=== PATIENT | male | born 1980 | race American Indian/Alaskan Native ===

== ENCOUNTER 2018-06-01 12:10 | Outpatient (CLI) | payer BC ==
[2018-06-01 13:41] LABS: Bilirubin,Urine NEG (Negative); Blood,Urine NEG (Negative); Color,Urine Yellow (Yellow); Mucus,Urine FEW /HPF; Protein,Urine <15 mg/dL mg/dL (Negative)
== END 2018-06-01 12:11 | disposition home or self-care (01) ==
LOC: LAB 12:10
PROVIDERS: ATTEND Internal Medicine
DX: N39.0 Urinary tract infection, site not specified (principal)
CPT/HCPCS: 81001; 87086

== ENCOUNTER 2019-05-23 12:00 | Outpatient (CLI) | payer BC ==
--- NOTE | 2019-05-23 13:55 | XRay Report ---
CHEST 2 VIEWS INDICATION: [id number].[id number]. COMPARISON: None FINDINGS: Support devices: None. Heart: Within normal limits. Lungs/pleura: No acute air space or interstitial disease. No pneumothorax. Additional findings: None. IMPRESSION: Normal chest x-ray. Signer Name: Olman Noland Jr, MD Signed: 05/23/2019 1:50 PM Workstation Name: [id number]
== END 2019-05-23 12:01 | disposition home or self-care (01) ==
LOC: XRAY 12:00
PROVIDERS: ATTEND Internal Medicine
DX: R05 Cough (principal)
CPT/HCPCS: 71046

== ENCOUNTER 2019-06-05 12:51 | Outpatient (CLI) | payer BC ==
[2019-06-05 13:13] LABS: Basophils % (Auto) 1.1 % (0.0-1.8); Eosinophils # (Auto) 0.1 K/mm3 (0.0-0.4); Eosinophils % (Auto) 1.8 % (0.0-4.3); Hematocrit 40.3 % (35.5-45.6); Hemoglobin 13.2 gm/dl (11.8-15.2); Lymphocytes % (Auto) 27.2 % (13.4-35.0); Mean Corpuscular HGB Conc 33 % (32-34); Mean Corpuscular Volume 82 fl (84-94); Monocytes # (Auto) 0.3 K/mm3 (0.0-0.8); Monocytes % (Auto) 8.9 % (0.0-7.3); Platelet Count 486 K/mm3 (140-440); Red Blood Count 4.91 M/mm3 (3.65-5.03); Red Cell Distribution Width 12.9 % (13.2-15.2)
[2019-06-05 13:28] LABS: Alanine Aminotransferase 15 units/L (7-56); Albumin 4.2 g/dL (3.9-5); BUN/Creatinine Ratio 11; Blood Urea Nitrogen 8 mg/dL (9-20); Calcium 9.1 mg/dL (8.4-10.2); HDL Cholesterol 42 mg/dL (40-59); Hemolysis Index 2; LDL Cholesterol,Direct 80 mg/dL (50-130)
[2019-06-08 13:40] LABS: Vitamin D, 25-OH, D2 <4 ng/mL
== END 2019-06-05 12:52 | disposition home or self-care (01) ==
LOC: LAB 12:51
PROVIDERS: ATTEND Internal Medicine
DX: Z00.00 Encounter for general adult medical examination without abnormal findings (principal); Z13.21 Encounter for screening for nutritional disorder; Z13.220 Encounter for screening for lipoid disorders; Z13.29 Encounter for screening for other suspected endocrine disorder
CPT/HCPCS: 36415; 80053; 80061; 82306; 82607; 83036; 84443; 85025

== ENCOUNTER 2019-06-21 11:12 | Outpatient (CLI) | payer BC | END 2019-06-21 11:13 | disposition home or self-care (01) | LOC: LAB 11:12 | PROVIDERS: ATTEND Internal Medicine | DX: Z11.3 Encounter for screening for infections with a predominantly sexual mode of transmission (principal) | CPT/HCPCS: 36415; 86592; 86689; 87591 ==

== ENCOUNTER 2020-03-11 17:03 | Emergency (ER) | payer BC ==
[2020-03-11 17:16] VITALS: BP 141/95
--- NOTE | 2020-03-11 19:08 | Emergency Department Report ---
ED Back Pain/Injury HPI - General Chief Complaint: Back Pain/Injury Stated Complaint: BACK PAIN Time Seen by Provider: 03/11/20 18:50 Source: patient Limitations: No Limitations - History of Present Illness MD Complaint: back pain, back injury Place: home Radiation: none Severity: mild Quality: dull, aching Consistency: constant Improves With: none Worsens With: none Associated Symptoms: denies: weakness, numbness, cough, fever/chills, headaches, abdominal pain, loss of appetite, seizure, shortness of breath, syncope - Related Data Previous Rx's Medication Instructions Recorded Last Taken Type Ketorolac [Toradol] 10 mg PO Q6H PRN #15 tablet 03/11/20 Unknown Rx methOCARBAMOL [Robaxin] 750 mg PO Q8H PRN #21 tablet 03/11/20 Unknown Rx Allergies Allergy/AdvReac Type Severity Reaction Status Date / Time No Known Allergies Allergy Unverified 08/05/18 13:37 ED Review of Systems ROS: Stated complaint: BACK PAIN Other details as noted in HPI Comment: All other systems reviewed and negative ED Past Medical Hx - Past Medical History Previous Medical History?: No - Surgical History Past Surgical History?: Yes Additional Surgical History: inguinal hernia repair - Social History Smoking Status: Never Smoker Substance Use Type: Alcohol - Medications Home Medications: Home Medications Medication Instructions Recorded Confirmed Last Taken Type Ketorolac [Toradol] 10 mg PO Q6H PRN #15 tablet 03/11/20 Unknown Rx methOCARBAMOL [Robaxin] 750 mg PO Q8H PRN #21 tablet 03/11/20 Unknown Rx ED Physical Exam - General Limitations: No Limitations General appearance: alert, in no apparent distress - Head Head exam: Present: atraumatic, normocephalic, normal inspection - Eye Eye exam: Present: normal appearance, PERRL, EOMI. Absent: scleral icterus, conjunctival injection Pupils: Present: normal accommodation - ENT ENT exam: Present: normal exam, normal orophraynx, mucous membranes moist - Neck Neck exam: Present: normal inspection, full ROM - Respiratory Respiratory exam: Present: normal lung sounds bilaterally. Absent: respiratory distress, wheezes, rales, chest wall tenderness, accessory muscle use, prolonged expiratory - Cardiovascular Cardiovascular Exam: Present: regular rate, normal rhythm. Absent: systolic murmur, diastolic murmur, rubs, gallop - GI/Abdominal GI/Abdominal exam: Present: soft, normal bowel sounds - Rectal Rectal exam: Present: deferred - Extremities Exam Extremities exam: Present: normal inspection - Back Exam Back exam: Present: normal inspection, muscle spasm, paraspinal tenderness. Absent: CVA tenderness (R), CVA tenderness (L) - Neurological Exam Neurological exam: Present: alert, oriented X3, CN II-XII intact - Psychiatric Psychiatric exam: Present: normal affect, normal mood - Skin Skin exam: Present: warm, dry, intact, normal color. Absent: rash ED Course Vital Signs 03/11/20 17:10 Temperature 98.2 F Pulse Rate 68 Respiratory 17 Rate Blood Pressure 141/95 O2 Sat by Pulse 98 Oximetry Critical care attestation.: If time is entered above; I have spent that time in minutes in the direct care of this critically ill patient, excluding procedure time. ED Disposition Clinical Impression: Lumbago Disposition: DC-01 TO HOME OR SELFCARE Is pt being admited?: No Does the pt Need Aspirin: No Condition: Stable Instructions: Acute Back Pain, Adult, Back Injury Prevention, [id number], Back Injury Prevention Prescriptions: methOCARBAMOL [Robaxin] 750 mg PO Q8H PRN #21 tablet PRN Reason: Spasms Ketorolac [Toradol] 10 mg PO Q6H PRN #15 tablet PRN Reason: Pain Referrals: PRIMARY CAREMD [Primary Care Provider] - 3-5 Days [facility] [Provider Group] - 3-5 Days KAVITHA JONES MD [Staff Physician] - 3-5 Days
== END 2020-03-11 19:16 | disposition home or self-care (01) ==
LOC: ED 17:03
DX: M54.5 Low back pain (principal); Z79.899 Other long term (current) drug therapy; Z98.890 Other specified postprocedural states
CPT/HCPCS: 99282

== ENCOUNTER 2021-08-11 12:12 | Outpatient (CLI) | payer BC ==
--- NOTE | 2021-08-11 13:56 | XRay Report ---
CERVICAL SPINE 5 VIEWS INDICATION: M54.2 CERVICALGIA. COMPARISON: None. IMPRESSION: Normal alignment. 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 The remaining disc levels and facet joints are unremarkable. There is no evidence for narrowing of t he bony neural foramen on the oblique images. No acute osseous or soft tissue abnormality. RIGHT SHOULDER 3 VIEWS INDICATION: M54.2 CERVICALGIA. Right shoulder pain. COMPARISON: None. IMPRESSION: No acute osseous or soft tissue abnormality. No significant DJD. Signer Name: Olman Noland Jr, MD Signed: 08/11/2021 1:52 PM Workstation Name: [id number]
== END 2021-08-11 12:13 | disposition home or self-care (01) ==
LOC: XRAY 12:12
PROVIDERS: ATTEND Internal Medicine
DX: M47.812 Spondylosis without myelopathy or radiculopathy, cervical region (principal); M25.511 Pain in right shoulder
CPT/HCPCS: 72050

== ENCOUNTER 2021-08-22 08:22 | Emergency (ER) | payer BC ==
[2021-08-22 08:52] VITALS: BP 152/96
== END 2021-08-22 10:00 | disposition left against medical advice (07) ==
LOC: ED 08:22
DX: M25.519 Pain in unspecified shoulder (principal); M54.2 Cervicalgia; Z53.21 Procedure and treatment not carried out due to patient leaving prior to being seen by health care provider

== ENCOUNTER 2021-09-09 12:56 | Outpatient (CLI) | payer BC ==
--- NOTE | 2021-09-09 14:25 | Magnetic Resonance Report ---
MR cervical spine wo con INDICATION / CLINICAL INFORMATION: M54.2 CERVICALGIA--BILAT SHOULDER PAIN. TECHNIQUE: Multisequence, multiplanar images of the cervical spine were obtained. COMPARISON: None available. FINDINGS: ALIGNMENT: Normal alignment. VERTEBRAE:No aggressive osseous marrow signal. Vertebral body heights are preserved. SPINAL CORD: No abnormal cord signal [id number] ANALYSIS: C2-C3: No significant spinal canal stenosis. No significant foraminal narrowing. C3-C4: No significant spinal canal stenosis. No significant foraminal narrowing. C4-C5: No significant spinal canal stenosis. No significant foraminal narrowing. C5-C6: There is a broad-based disc osteophyte complex causing moderate canal stenosis. There is mild right and moderate left foraminal narrowing due to uncovertebral hypertrophy. C6-C7: There is a broad-based disc osteophyte complex resulting in moderate canal stenosis. There is severe left and moderate right foraminal narrowing due to uncovertebral hypertrophy. C7-T1: No significant spinal canal stenosis. No significant foraminal narrowing. PARASPINAL SOFT TISSUES: No significant abnormality. ADDITIONAL FINDINGS: None. IMPRESSION: 1. Degenerative findings at C5-6 and C6-7 as described. CERVICAL GRADING DEFINITIONS FOR THE PURPOSES OF THIS REPORT: Cervical canal stenosis: No stenosis: No significant attenuation of the CSF spaces Mild stenosis: Attenuation or effacement of the ventral CSF Moderate stenosis: Effacement of both the ventral and dorsal CSF, cord flattening, but so me CSF remaining Severe stenosis: Effacement of all CSF, cord compression Cervical neural foraminal stenosis (Ching et al. Khmer J Radiol. 2015 Jan-Feb;16(6):1294-302): No stenosis: No attenuation of the fat in the foramen Mild stenosis: Narrowest point of the foramen is larger than the extraforaminal nerve Moderate stenosis: Narrowest point of the foramen remains greater than 50% of the caliber of the extraforaminal nerve Severe stenosis: Narrowest point of the foramen is less than 50% of the caliber of th e extraforaminal nerve Signer Name: Giuseppe Chatman MD Signed: 09/09/2021 2:21 PM Workstation Name: [id number]
== END 2021-09-09 12:57 | disposition home or self-care (01) ==
LOC: MRI 12:56
PROVIDERS: ATTEND Orthopaedic Surgery
DX: M48.02 Spinal stenosis, cervical region (principal); M25.78 Osteophyte, vertebrae
CPT/HCPCS: 72141

== ENCOUNTER 2021-09-18 12:11 | Outpatient (CLI) | payer BC ==
[2021-09-18 12:33] LABS: Basophils # (Auto) 0.1 K/mm3 (0.0-0.1); Eosinophils # (Auto) 0.1 K/mm3 (0.0-0.4); Eosinophils % (Auto) 2.5 % (0.0-4.3); Hemoglobin 14.4 gm/dl (11.8-15.2); Lymphocytes % (Auto) 38.6 % (13.4-35.0); Mean Corpuscular HGB Conc 33 % (32-34); Mean Corpuscular Volume 82 fl (84-94); Monocytes # (Auto) 0.4 K/mm3 (0.0-0.8); Monocytes % (Auto) 7.4 % (0.0-7.3); Platelet Count 239 K/mm3 (140-440); Red Blood Count 5.35 M/mm3 (3.65-5.03); Red Cell Distribution Width 13.8 % (13.2-15.2)
[2021-09-18 13:44] LABS: Alanine Aminotransferase 31 units/L (7-56); BUN/Creatinine Ratio 13; Blood Urea Nitrogen 10 mg/dL (9-20); Calcium 9.9 mg/dL (8.4-10.2); Chol/HDL Ratio 2.21 %; HDL Cholesterol 64 mg/dL (40-59); Hemolysis Index 8; LDL Cholesterol,Direct 74 mg/dL (50-130)
== END 2021-09-18 12:12 | disposition home or self-care (01) ==
LOC: LABHHL 12:11
PROVIDERS: ATTEND Internal Medicine
DX: Z00.00 Encounter for general adult medical examination without abnormal findings (principal); E55.9 Vitamin D deficiency, unspecified; R53.83 Other fatigue; R73.03 Prediabetes
CPT/HCPCS: 36415; 80053; 80061; 82306; 84443; 85025